=== PATIENT | female | born 1980 | race Caucasian/White ===

== ENCOUNTER 2017-10-29 17:19 | Outpatient (CLI) | payer OTHER ==
[~2017-10-29] VITALS: Ht 165.1 cm; Wt 78.9 kg
[~2017-10-29 17:19] MED LIST: CAMILA0.35 MG PO; IBUPROFEN800 MG PO; PRENATAL TABLE1 EAC3 PO
[2017-10-29 17:33] VITALS: BP 111/62
[2017-10-29 18:31] LABS: APPEARANCE CLOUDY ((CLEAR)); BILIRUBIN NEGATIVE; BLOOD LARGE; COLOR YELLOW ((YELLOW)); GLUCOSE (STRIP) NEGATIVE; KETONES NEGATIVE; LEUKOCYTES LARGE; NITRITE NEGATIVE; PROTEIN (STRIP) 30; SPECIFIC GRAVITY 1.021 (1.000-1.030); UROBILINOGEN 0.2 MG/DL (0.2-1.0)
[2017-10-29 19:12] LABS: RED BLOOD CELLS TNTC /HPF (0-5)
[2017-10-29 19:13] LABS: EPITHELIAL CELLS 2+ /HPF; WHITE BLOOD CELLS 15-20 /HPF (0-5)
[2017-10-29 19:14] LABS: MUCUS NONE SEEN /LPF
[2017-10-29 19:15] LABS: BACTERIA RARE /HPF; HYALINE CASTS 0-5 /LPF
[2017-10-29 19:19] LABS: AMPHETAMINE NEGATIVE (500 ng/mL); BARBITURATES NEGATIVE (200 ng/mL); BENZODIAZEPINES NEGATIVE (150 ng/mL); BUPRENORPHINE NEGATIVE (10 ng/mL); COCAINE NEGATIVE (150 ng/mL); METHADONE NEGATIVE (200 ng/mL); METHAMPHETAMINE NEGATIVE (500 ng/mL); OPIATES (MORPHINE) NEGATIVE (100 ng/mL); OXYCODONE NEGATIVE (100 ng/mL); PHENCYCLIDINE NEGATIVE (25 ng/mL); PROPOXYPHENE NEGATIVE (300 ng/mL); THC CANNABINOIDS NEGATIVE (50 ng/mL); TRICYCLIC ANTIDEPRESSANTS NEGATIVE (300 ng/mL)
[2017-10-29 19:35] LABS: GROUP B STREP POSITIVE (NEGATIVE)
[2017-10-29 22:27] LABS: CANDIDA DNA PROBE NEGATIVE; GARDNERELLA DNA PROBE NEGATIVE; TRICHOMONAS DNA PROBE NEGATIVE
== END 2017-10-29 20:05 | disposition home or self-care (01) ==
LOC: LDRP-OP 17:19 → 2WEST 17:20 → LDRP-OP 01-15 11:44
PROVIDERS: Advanced Practice Midwife
DX: O35.8XX0 Maternal care for other (suspected) fetal abnormality and damage, not applicable or unspecified (principal); O26.893 Other specified pregnancy related conditions, third trimester; R10.9 Unspecified abdominal pain; O22.03 Varicose veins of lower extremity in pregnancy, third trimester; Z3A.38 38 weeks gestation of pregnancy
CPT/HCPCS: 59025; 81003; 82731; 87077; 87081; 87186; 87480; 87510; 87653; 87660; G0378; J0702; J7120

== ENCOUNTER 2017-10-30 19:00 | Outpatient (CLI) | payer OTHER ==
[2017-10-30 19:21] VITALS: BP 119/76
== END 2017-10-30 19:55 | disposition home or self-care (01) ==
LOC: LDRP-OP 19:00 → 2WEST 19:03 → LDRP-OP 01-15 21:06
DX: O35.8XX0 Maternal care for other (suspected) fetal abnormality and damage, not applicable or unspecified (principal); Z3A.33 33 weeks gestation of pregnancy
CPT/HCPCS: 59025; G0378

== ENCOUNTER 2017-12-09 07:48 | Inpatient (IN) | payer OTHER ==
[~2017-12-09] VITALS: Ht 165.1 cm; Wt 84.0 kg
[2017-12-09] VITALS (15 sets, daily range): BP systolic 112–138; BP diastolic 68–82
[2017-12-09] MEDS ORDERED: PRENATAL TABLE1 EAC3 PO (09:06)
[2017-12-09 09:59] LABS: BASOPHIL (%) 0.3 % (0-1); EOSINOPHIL (%) 0.7 % (0-5); EOSINOPHIL COUNT 0.1 K/uL (0-0.3); HEMATOCRIT 33.1 % (36.0-46.0); IMMATURE GRANULOCYTE (%) 0.3 % (0.0-0.7); LYMPHOCYTE COUNT 1.5 K/uL (1.0-2.8); MCH 28.9 PG (29.0-34.0); MCHC 33.2 G/DL (30.0-36.0); MCV 87.1 FL (83-99); MONOCYTE (%) 8.3 % (3-12); MONOCYTE COUNT 0.6 K/uL (0-0.8); NEUTROPHIL (%) 70.4 % (45-76); NEUTROPHIL COUNT 5.3 K/uL (1.8-6.4); PLATELET COUNT 209 K/uL (156-360); RBC DIS.WIDTH-SD 44.4 % (39-53); WHITE BLOOD COUNT 7.5 K/uL (4.1-10.2)
[2017-12-09 10:58] LABS: AMPHETAMINE NEGATIVE (500 ng/mL); BARBITURATES NEGATIVE (200 ng/mL); BENZODIAZEPINES NEGATIVE (150 ng/mL); BUPRENORPHINE NEGATIVE (10 ng/mL); COCAINE NEGATIVE (150 ng/mL); METHADONE NEGATIVE (200 ng/mL); METHAMPHETAMINE NEGATIVE (500 ng/mL); OPIATES (MORPHINE) NEGATIVE (100 ng/mL); OXYCODONE NEGATIVE (100 ng/mL); PHENCYCLIDINE NEGATIVE (25 ng/mL); PROPOXYPHENE NEGATIVE (300 ng/mL); THC CANNABINOIDS NEGATIVE (50 ng/mL); TRICYCLIC ANTIDEPRESSANTS NEGATIVE (300 ng/mL)
[2017-12-09 13:27] LABS: TREPONEMA ANTIBODY NEGATIVE (NEGATIVE)
[2017-12-10 07:19] LABS: BASOPHIL (%) 0.2 % (0-1); EOSINOPHIL (%) 0.5 % (0-5); EOSINOPHIL COUNT 0.1 K/uL (0-0.3); HEMATOCRIT 32.7 % (36.0-46.0); HEMOGLOBIN 10.7 G/DL (11.9-15.5); IMMATURE GRANULOCYTE (%) 0.4 % (0.0-0.7); LYMPHOCYTE COUNT 1.7 K/uL (1.0-2.8); MCH 28.8 PG (29.0-34.0); MCHC 32.7 G/DL (30.0-36.0); MCV 87.9 FL (83-99); MONOCYTE (%) 6.3 % (3-12); MONOCYTE COUNT 0.7 K/uL (0-0.8); NEUTROPHIL (%) 77.6 % (45-76); NEUTROPHIL COUNT 8.6 K/uL (1.8-6.4); PLATELET COUNT 214 K/uL (156-360); RBC DIS.WIDTH-SD 44.7 % (39-53); RED BLOOD COUNT 3.72 M/uL (3.80-5.20)
[2017-12-10 07:21] VITALS: BP 115/74
[2017-12-10 15:07] VITALS: BP 123/70
[2017-12-11] MEDS ORDERED: CHROMAGEN,1 CAPSULE PO (09:34)
[2017-12-11] MEDS ORDERED: CAMILA0.35 MG PO (09:38)
[2017-12-11] MEDS ORDERED: IBUPROFEN800 MG PO (09:39)
== END 2017-12-11 16:33 | disposition home or self-care (01) | DRG 775 ==
LOC: LDRP-OP 07:48 → 2WEST 07:49 → LDRP-OP 12:51 → 2WEST 19:55 → LDRP-OP 01-15 20:55
PROVIDERS: Advanced Practice Midwife
PROC: 10E0XZZ Delivery of Products of Conception, External Approach (ICD-10-PCS; principal; 2017-12-09)
PROC: 0HQ9XZZ Repair Perineum Skin, External Approach (ICD-10-PCS; 2017-12-09)
PROC: 3E033VJ Introduction of Other Hormone into Peripheral Vein, Percutaneous Approach (ICD-10-PCS; 2017-12-09)
PROC: 10907ZC Drainage of Amniotic Fluid, Therapeutic from Products of Conception, Via Natural or Artificial Opening (ICD-10-PCS; 2017-12-09)
DX: O99.02 Anemia complicating childbirth (principal); O99.354 Diseases of the nervous system complicating childbirth; O99.824 Streptococcus B carrier state complicating childbirth; Z3A.39 39 weeks gestation of pregnancy; Z37.0 Single live birth; D50.9 Iron deficiency anemia, unspecified; O12.04 Gestational edema, complicating childbirth; G43.909 Migraine, unspecified, not intractable, without status migrainosus; Z83.2 Family history of diseases of the blood and blood-forming organs and certain disorders involving the immune mechanism
CPT/HCPCS: 85025; 86780; J0595; J2540; J7120